=== PATIENT | male | born 1980 | race Caucasian/White ===

== ENCOUNTER 2019-05-26 11:01 | Outpatient (CLI) | payer OTHER, SELFPAY ==
--- NOTE | ~2019-05-26 | XR_ITS ---
EXAMINATION: XR hip RT 2V w AP pelvis EXAM DATE: 05/26/2019 11:21 INDICATION: Low back pain, right leg pain. TECHNIQUE: Right hip frontal, crosstable lateral and 'frog-leg' projections for interpretation. Front al projection pelvis. There is no prior study for comparison. FINDINGS: Smooth right hip femoral head contour, no radiographic evidence of avascular necrosis. The re is mild symmetric bilateral hip primary osteoarthritis. There are no acute fractures or dislocatio ns identified. There is no subcutaneous gas. The soft tissue is unremarkable. There are no radiop aque foreign bodies. IMPRESSION: Mild symmetric bilateral hip osteoarthritis. Reviewed, dictated and finalized at location B. STANT TEACHING PROFESSOR
--- NOTE | ~2019-05-26 | XR_ITS ---
EXAMINATION: XR lumbar spine 2-3V EXAM DATE: 05/26/2019 11:21 INDICATION: No known recent injury provided at this time. Pain of the low back. Right hip pain. TECHNIQUE: Lumber spine frontal, lateral, lateral L5-S1 projections for interpretation. There is no prior study for comparison. FINDINGS: Mild diffuse lumbar disc disease. Possible unilateral spondylolysis at L2. There is mild u pper lumbar, mild to moderate lower lumbar facet arthropathy. Sacrum, sacroiliac joints, sacral arcua te lines are intact. Paraspinal soft tissue is unremarkable. IMPRESSION: 1. Mild lumbar disc disease. 2. Mild to moderate lower lumbar facet arthropathy. 3. Possible unilateral L2 spondylolysis without spondylolisthesis. Reviewed, dictated and finalized at location B. ALT TAR AND GRAVEL ROOFER
== END 2019-05-26 11:02 | disposition home or self-care (01) ==
LOC: ANHIMG 11:03
PROVIDERS: PCP Family Medicine; Visit Provider Physician Assistant
DX: M54.5 Low back pain (principal); M25.551 Pain in right hip; M16.0 Bilateral primary osteoarthritis of hip; M51.9 Unspecified thoracic, thoracolumbar and lumbosacral intervertebral disc disorder
CPT/HCPCS: 72100; 73502; 73521

== ENCOUNTER 2019-06-01 09:04 | Outpatient (CLI) | payer OTHER, SELFPAY ==
--- NOTE | ~2019-06-01 | US_ITS ---
EXAMINATION: US soft tissue groin RT DATE: 06/01/2019 09:36 INDICATION: Right groin pain. TECHNIQUE: Multiple grayscale and Doppler ultrasound images of the right inguinal region were obtaine dAdi COMPARISON: None FINDINGS: There is no abnormal mass or lymphadenopathy. No hernia. IMPRESSION: 1. No abnormality in the patient's area of concern in right inguinal region. Reviewed, dictated and finalized at location A. ETERIZATION LABORATORY TECHNICIAN
== END 2019-06-01 09:05 | disposition home or self-care (01) ==
PROVIDERS: PCP Family Medicine; Visit Provider Physician Assistant
DX: M25.551 Pain in right hip (principal); R10.31 Right lower quadrant pain
CPT/HCPCS: 76882

== ENCOUNTER 2021-03-15 15:19 | Outpatient (CLI) | payer OTHER, SELFPAY ==
--- NOTE | ~2021-03-15 | US_ITS ---
EXAMINATION: US soft tissue LE RT DATE: 03/15/2021 15:48 INDICATION: Anesthesia of right thigh. TECHNIQUE: Multiple grayscale and Doppler ultrasound images of the right thigh were obtained. COMPARISON: None FINDINGS: There is no abnormal mass in the patient's area of concern in right thigh. IMPRESSION: 1. No abnormality in the patient's area of concern in right thigh. Reviewed, dictated and finalized at location A. B OFFICE COORDINATOR
== END 2021-03-15 15:20 | disposition home or self-care (01) ==
LOC: ANHIMG 15:23
PROVIDERS: PCP Family Medicine; Visit Provider Physician Assistant
DX: R20.0 Anesthesia of skin (principal); R20.2 Paresthesia of skin; R22.41 Localized swelling, mass and lump, right lower limb
CPT/HCPCS: 76882

== ENCOUNTER 2021-09-06 09:40 | Outpatient (CLI) | payer OTHER, SELFPAY ==
--- NOTE | 2021-09-06 11:15 | NEURO_ITS ---
Impression: # Complains of numbness of left hand. # Mild left Carpal Tunnel Syndrome. # Left ulnar neuropathy across the elbow. # Normal needle/EMG exam. Nerve Conduction Studies Anti Sensory Summary Table Stim Site NR Peak (ms) P-T Amp (?V) Site1 Site2 Delta-P (ms) Dist (cm) Benjamin (m/s) Left Median Anti Sensory (2-3nd Digit) Wrist 3.3 31.0 Wrist 2-3nd Digit 3.3 14.0 42 Wrist 3.5 28.8 Wrist 2-3nd Digit 3.3 14.0 42 Left Radial Anti Sensory (Base 1st Digit) Wrist 2.2 7.4 Wrist Base 1st Digit 2.2 0.0 Left Ulnar Anti Sensory (5th Digit) Wrist 3.1 36.9 Wrist 5th Digit 3.1 14.0 45 Motor Summary Table Stim Site NR Onset (ms) O-P Amp (mV) Site1 Site2 Delta-0 (ms) Dist (cm) Benjamin (m/s) Left Median Motor (Abd Poll Brev) Wrist 4.3 3.0 Elbow Wrist 6.1 33.0 54 Elbow 10.4 3.7 Left Ulnar Motor (Abd Dig Minimi) Wrist 2.8 6.6 A Elbow Wrist 7.7 32.0 42 A Elbow 10.5 3.2 B Elbow Wrist 5.5 29.0 53 B Elbow 8.3 5.2 F Wave Studies NR F-Lat (ms) L-R F-Lat (ms) Left Median (Mrkrs) (Abd Poll Brev) 32.46 Left Ulnar (Mrkrs) (Abd Dig Min) 35.01 EMG Side Muscle Nerve Root Ins Act Fibs Amp Dur Recrt Comment Left 1stDorInt Ulnar C8-T1 Nml Nml Nml Nml Nml Left Ext Indicis Radial (Post Int) C7-8 Nml Nml Nml Nml Nml Left Ext Digitorum Radial (Post Int) C7-8 Nml Nml Nml Nml Nml Left BrachioRad Radial C5-6 Nml Nml Nml Nml Nml Left PronatorTeres Median C6-7 Nml Nml Nml Nml Nml Left Abd Poll Brev Median C8-T1 Nml Nml Nml Nml Nml MTDD
== END 2021-09-06 09:41 | disposition home or self-care (01) ==
PROVIDERS: PCP Family Medicine; Visit Provider Nurse Practitioner Family
DX: R20.0 Anesthesia of skin (principal); R20.2 Paresthesia of skin; G56.02 Carpal tunnel syndrome, left upper limb; G56.22 Lesion of ulnar nerve, left upper limb
CPT/HCPCS: 95886; 95909

== ENCOUNTER 2023-07-18 09:34 | Emergency (ER) | payer OTHER, SELFPAY ==
[2023-07-18 10:04] VITALS: BP 99/66; PULSE 71; RESP 18; TEMP 36.5; O2SAT 100
--- NOTE | 2023-07-18 10:55 | ED.GENADULT ---
HPI - General Adult General Chief complaint: Abdominal Pain Stated complaint: constipation Time Seen by Provider: 07/18/23 10:35 Source: patient, RN notes reviewed and old records reviewed Mode of arrival: ambulatory Limitations: no limitations History of Present Illness HPI narrative: 43-year-old male to [facility] for complaint generalized abdominal discomfort and constipation. Patient endorses last known bowel movement was 6 days ago. Patient endorses ability to pass gas. Patient denies any urinary changes, nausea, vomiting, fever. Patient endorses history of bowel resection as a child following an accident. Patient in no acute distress upon arrival. Respirations even and nonlabored. Patient able to tolerate fluids by mouth. Related Data Home Medications Medication Instructions Recorded Confirmed clonazepam 0.5 mg tablet 0.5 mg PO TID 05/26/19 12/17/22 hydroxyzine HCl 25 mg tablet 25 mg PO BID PRN 05/26/19 12/17/22 metoprolol succinate 50 mg 50 mg PO BID 05/26/19 12/17/22 tablet,extended release 24 hr rosuvastatin 10 mg tablet (Crestor) 10 mg PO DAILY 06/01/20 12/17/22 buspirone 10 mg tablet 10 mg PO TID 07/25/22 12/17/22 sildenafil 25 mg tablet (Viagra) 25 mg PO DAILY sexual activity 07/18/23 tirzepatide 10 mg/0.5 mL mg subcut 07/18/23 subcutaneous pen injector (Mounjaro) Allergies Allergy/AdvReac Type Severity Reaction Status Date / Time sertraline Allergy Unknown ED Verified 07/18/23 11:28 zolpidem Allergy Unknown nightmares Verified 07/18/23 11:28 Review of Systems Review of Systems: All systems reviewed & are unremarkable except as noted in HPI and below Constitutional: Constitutional: Reports as per HPI, Denies body ache(s), Denies chills, Denies fever(s) and Denies poor appetite Eyes: Eyes: Reports no additional eye complaints ENT: Reports system reviewed and no additional complaints, except as documented Cardiovascular: Cardiovascular: Reports no additional cardiovascular complaints, Denies chest pain and Denies dyspnea Respiratory: Respiratory: Reports no additional respiratory complaints, Denies cough and Denies dyspnea Gastrointestinal: Gastrointestinal: Reports as per HPI, Reports abdominal pain, Reports constipation, Denies nausea and Denies vomiting Musculoskeletal: Musculoskeletal: Reports no additional musculoskeletal complaints Neurologic: Reports system reviewed and no additional complaints, except as documented Psychiatric: Psychiatric: Reports no additional psychiatric complaints [facility] Past Medical History Medical History (Updated 07/18/23 @ 15:13 by Semaj Chavez MD) Generalized anxiety disorder Low testosterone MATTHEW (obstructive sleep apnea) Pure hypercholesterolemia Right leg DVT Surgical History Surgical History (Updated 07/18/23 @ 15:13 by Semaj Chavez MD) H/O resection of small bowel Partial 2/2 trauma at age 12 yr. History of cholecystectomy History of Roland fundoplication Social History Social History Social History: Smoking status: Never smoker Second hand tobacco smoke exposure: No Alcohol intake: never Substance use: never Substance use type: does not use Lack of Transportation: No Lack of Food: Never True Current Housing: I Have Housing Concerned About Future Housing: No Difficulty Paying Gas/Electric Bills: No Difficulty Paying for Meds: No Currently Unemployed: No Education: Decline to Answer Difficulty w/ Childcare or Family Care: No Living arrangements: with family Occupation/Education: occupation Gender identity (if verbalized by the patient): Male Sexual Orientation (if Verbalized by the Patient): Straight or Heterosexual Comments At the time of my signature, I reviewed and agree with the nursing past medical, surgical, social, and family history. There is no relevant family history pertinent to the patient complaint
[2023-07-18 11:13] VITALS: BP 110/69
== END 2023-07-18 11:00 | disposition short-term general hospital (02) ==
PROVIDERS: Emergency Provider Nurse Practitioner Family; PCP Family Medicine
DX: R10.30 Lower abdominal pain, unspecified (principal); R10.31 Right lower quadrant pain; K59.00 Constipation, unspecified; E78.00 Pure hypercholesterolemia, unspecified; F41.9 Anxiety disorder, unspecified; Z86.718 Personal history of other venous thrombosis and embolism
CPT/HCPCS: 99212; G0463

== ENCOUNTER 2023-07-18 11:27 | Emergency (ER) | payer OTHER, SELFPAY ==
--- NOTE | ~2023-07-18 | CT_ITS ---
. EXAMINATION: CT abdomen pelvis w con DATE: 07/18/2023 15:49 INDICATION: Constipation. Suprapubic pain. Nausea. TECHNIQUE: Computed tomography (CT) of the abdomen and pelvis was performed with 100 CC Omnipaque 350 intravenous contrast. Automated exposure control and iterative reconstruction technique were employe d. Exam dose: 1259.00 mGy-cm total exam DLP. COMPARISON: None. FINDINGS: The lung bases are clear of infiltrate or consolidation. Normal heart size. No pericardial or pleural effusion. Very small sliding hiatal hernia. Status post cholecystectomy. The liver, spleen, pancreas, and adrenal glands and kidneys are unremarkable. No bile duct or pancrea tic duct dilatation. No urinary tract calculus or hydroureteronephrosis. Normal caliber of the abdominal aorta. No intraperitoneal or retroperitoneal or pelvic mass lesion or adenopathy or ascites. The urinary bladder and prostate gland are unremarkable. The appendix is not detected. There is no inflammatory change in the right lower quadrant or elsewher e. No bowel obstruction is detected. There are fluid containing nondilated small bowel segments. No i ntraperitoneal free air. Mild to moderate bilateral hip osteoarthritis. No suspicious osteolytic or osteoblastic lesions are n oted Borderline primary lumbar spinal stenosis.. IMPRESSION: Very small sliding hernia Status post cholecystectomy Borderline primary lumbar spinal stenosis Bilateral hip osteoarthritis Reviewed, dictated and finalized at Location A. Reviewed, dictated and finalized at location L.
[2023-07-18 11:56] VITALS: BP 106/62; PULSE 77; RESP 18; TEMP 36.5; O2SAT 100
--- NOTE | 2023-07-18 13:40 | ED.ABDPAIN ---
HPI - Abdominal Pain General Chief Complaint: Abdominal Pain <JOE Luo Last Filed: 07/18/23 13:46> Stated Complaint: abdominal pain <JEO Luo Last Filed: 07/18/23 13:46> Time Seen by Provider: 07/18/23 13:40 <Rabia Mc PA-C - Last Filed: 07/18/23 13:46> Focused HPI: Patient is a 43 y/o male who presents the ED with report of lower abdominal pain. Patient reports he woke up Saturday morning with pain in his suprapubic region, radiates throughout his lower abdomen. Feels like a pressure. Pain has been worsening since then. Reports some improvement with Gas-x. Reports constipation, last BM on Saturday. Reports intermittent nausea, denies current nausea. Denies vomiting. Denies fevers. Denies dysuria or hematuria, flank pain. Patient denies hx of similar pain. Patient is currently on Mounjaro for weight loss. GENERAL: Well-appearing, obese with BMI of 34.1, and in no acute distress. HEAD: Normocephalic, atraumatic. CHEST: Clear to auscultation. ?No respiratory distress. HEART: Regular rate and rhythm.? ABD: Minimal tenderness throughout suprapubic region. No rebound. Normoactive BS. NEURO: ?Alert and oriented x3. Patient screened in triage and initial orders placed.? ?Additional care and disposition to be based upon?diagnostic testing and treatment. <Rabia Mc PA-C - Last Filed: 07/18/23 13:46> Source: patient <JOE Luo Last Filed: 07/18/23 13:46> Mode of arrival: ambulatory <JOE Luo Last Filed: 07/18/23 13:46> Limitations: no limitations <JOE Luo Last Filed: 07/18/23 13:46> History of Present Illness HPI narrative: Patient is a 43-year-old male who presents ER with lower abdominal pain. Ongoing over last week. Has not had a good bowel movement in that time. He has passed some hard small pieces of stool. He has passed gas. No fevers or chills or sweats. He was summoned RO. He was at the pharmacy purchasing MiraLax and enema kit after discussion decided that he should go to urgent care who then referred him here. No history of bowel obstruction but he has had partial small-bowel resection. He has also had a Roland fundoplication and cholecystectomy. <Semaj Chavez MD - Last Filed: 07/18/23 18:24> Related Data Home Medications: Home Medications Medication Instructions Recorded Confirmed clonazepam 0.5 mg tablet 0.5 mg PO TID 05/26/19 12/17/22 hydroxyzine HCl 25 mg tablet 25 mg PO BID PRN 05/26/19 12/17/22 metoprolol succinate 50 mg 50 mg PO BID 05/26/19 12/17/22 tablet,extended release 24 hr rosuvastatin 10 mg tablet (Crestor) 10 mg PO DAILY 06/01/20 12/17/22 buspirone 10 mg tablet 10 mg PO TID 07/25/22 12/17/22 sildenafil 25 mg tablet (Viagra) 25 mg PO DAILY sexual activity 07/18/23 tirzepatide 10 mg/0.5 mL mg subcut 07/18/23 subcutaneous pen injector (Mounjaro) <Rabia Mc PA-C - Last Filed: 07/18/23 13:46> Allergies/Adverse Reactions: Allergies Allergy/AdvReac Type Severity Reaction Status Date / Time sertraline Allergy Unknown ED Verified 07/18/23 11:28 zolpidem Allergy Unknown nightmares Verified 07/18/23 11:28 <Rabia Mc PA-C - Last Filed: 07/18/23 13:46> Review of Systems Review of Systems: All systems reviewed & are unremarkable except as noted in HPI and below <Semaj Chavez MD - Last Filed: 07/18/23 18:24> Constitutional: Constitutional: Reports no additional constitutional complaints <Semaj Chavez MD - Last Filed: 07/18/23 18:24> ENT: Reports system reviewed and no additional complaints, except as documented <Semaj Chavez MD - Last Filed: 07/18/23 18:24> Cardiovascular: Cardiovascular: Reports no additional cardiovascular complaints <Semaj Chavez MD - Last Filed: 07/18/23 18:24> Respiratory: Respiratory: Reports no additional respiratory complaints <Semaj Stark
[2023-07-18 14:13] LABS: Basophils Absolute Auto 0.1 K/mm3 (0.0-0.1); Eosinophils Absolute Auto 0.1 K/mm3 (0-0.3); Eosinophils Percent Auto 1.3 % (0-4.4); Hematocrit 49.8 % (42.0-52.0); Hemoglobin 15.8 g/dL (14.0-18.0); Immature Granulocyte Absolute 0.03 K/mm3 (0.00-0.031); Immature Granulocyte Percent A 0.5 % (0-0.5); Lymphocytes Absolute Auto 1.96 K/mm3 (0.9-3.2); Lymphocytes Percent Auto 32.1 % (18.3-44.2); Mean Corpuscular HGB Conc 31.7 g/dl (32-36); Mean Corpuscular Hemoglobin 27.3 pg (26-34); Mean Corpuscular Volume 86.2 fl (80-100); Mean Platelet Volume 9.3 fl (7.4-10.4); Monocytes Absolute Auto 0.5 K/mm3 (0.1-0.6); Monocytes Percent Auto 7.7 % (2.6-8.5); Neutrophils Absolute Auto 3.5 K/mm3 (1.3-6.7); Neutrophils Percent Auto 57.4 % (45.5-73.1); Platelet Count Result 261 k/mm3 (150-375); Red Blood Count 5.78 M/mm3 (4.6-6.20); Red Cell Distribution Width 13.5 % (11.5-14.5); White Blood Count 6.1 K/mm3 (4.5-10.0)
[2023-07-18 14:16] LABS: Appearance Urine Clear (Clear); Bilirubin Urine Negative (Negative); Blood Urine Negative (Negative); Color Urine Yellow (Yellow); Glucose Urine UA Negative (Negative); Ketones Urine Negative (Negative); Leukocyte Esterase Ur Negative LEU/UL (Negative); Nitrate Urine Negative (Negative); Protein Urine Negative (Negative); Specific Grav Ur 1.012 (1.001-1.035); Urobilinogen Urine 0.2 mg/dL (<2.0)
[2023-07-18 14:22] LABS: Add Urine Microscopic? NO
[2023-07-18 14:43] VITALS: BP 117/71; PULSE 72; RESP 16; O2SAT 100
[2023-07-18 15:21] LABS: Alanine Aminotransferase 37 U/L (6-50); Albumin Level 4.7 g/dL (3.5-5.1); Alkaline Phosphatase 76 U/L (38-126); Anion Gap 3 mmol/L (8-16); Aspartate Amino Transferase 28 U/L (17-59); Bilirubin,Total 0.9 mg/dL (0.2-1.3); Blood Urea Nitrogen 12 mg/dL (9-20); Calcium 9.7 mg/dL (8.4-10.2); Carbon Dioxide 31 mmol/L (22-30); Chloride 104 mmol/L (98-107); Estimated CRCL calculation 138 ml/min; Estimated Glomerular Filt Rate > 60; Glucose 91 mg/dL (65-110); Lipase 95 U/L (23-300); Potassium 4.1 mmol/L (3.4-5.0); Sodium 138 mmol/L (137-145)
[2023-07-18 16:44] VITALS: BP 99/68; PULSE 70; RESP 16; O2SAT 100
== END 2023-07-18 16:55 | disposition home or self-care (01) ==
PROVIDERS: Physician Assistant; Emergency Provider Emergency Medicine; PCP Family Medicine
DX: R10.30 Lower abdominal pain, unspecified (principal); E78.00 Pure hypercholesterolemia, unspecified; G47.33 Obstructive sleep apnea (adult) (pediatric); F41.1 Generalized anxiety disorder; Z86.718 Personal history of other venous thrombosis and embolism; Z90.49 Acquired absence of other specified parts of digestive tract; Z79.85 Long-term (current) use of injectable non-insulin antidiabetic drugs; K46.9 Unspecified abdominal hernia without obstruction or gangrene; M16.0 Bilateral primary osteoarthritis of hip
CPT/HCPCS: 36415; 74177; 80053; 83690; 85025; 99284; Q9967

== ENCOUNTER 2023-11-28 08:27 | Outpatient (CLI) | payer OTHER, SELFPAY ==
--- NOTE | 2023-11-28 11:45 | NEURO_ITS ---
Clinical note: The patient is 43-year-old with history of paresthesias in left 4th and 5th digits. There is history of surgery for ulnar neuropathy at elbow in the past. no history of diabetes mellitus. On brief examination it was noted the patient has mild atrophy of the left 1st dorsal interossei compared to the right side. However no significant deformity or weakness was noted. Please refer to the enclosed data. Summary of findings 1. Left median motor distal latency was moderately prolonged however amplitude and conduction velocity were within normal limits. 2. Left ulnar motor distal latency is mildly prolonged but amplitude was normal. Conduction velocity from below elbow to wrist was normal however across the elbow shows moderate slowing. 3. Left median palmar and digital sensory distal latencies a mild to moderate prolonged and amplitudes were moderately decreased. Left ulnar palmar sensory distal latency was normal however amplitudes moderately decreased. Left ulnar digital sensory distal latency was mildly prolonged but amplitude was sensory within normal limits. Left radial sensory distal latency amplitude and conduction velocity within normal limits. 4. EMG examination was performed using a monopolar needle electrode which shows evidence of mild decreased motor unit recruitment in the left flexor digitorum profundus. Remainder of the muscles examined did not show any significant changes. Impression: EMG and nerve study of left upper limb shows evidence of 1. 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 No denervation changes but mild decreased recruitment was noted in the left ulnar innervated muscles in the forearm. 2. Mild to moderate carpal tunnel syndrome. No denervation changes were seen in the abductor pollicis brevis. The greater involvement of the median motor branch compared to the sensory branch. Remainder of the study is considered within acceptable normal limits. Suzanne Arellano MD, FAAN, FAANEM Neurology/ Electrodiagnostic Medicine Nerve Conduction Studies Motor Nerve Results Latency Amplitude Segment Distance CV Comment Site (ms) (mV) (cm) (m/s) Left Median (APB) Motor Wrist 5.6 6.0 Elbow 10.6 5.8 Elbow-Wrist 255 51 Left Ulnar (ADM) Motor Wrist 3.6 9.3 Bel Elbow 8.5 8.1 Bel Elbow-Wrist 240 49 Abv Elbow 10.7 8.0 Abv Elbow-Bel Elbow 80 36 Sensory Nerve Results Latency (Peak) Amplitude (P-P) Segment Distance CV Comment Site (ms) (?V) (cm) (m/s) Left Median Sensory Wrist-Dig III 4.5 32 Wrist-Dig III 165 37 Left Median-Ulnar Palmar Sensory Median Palm-Wrist 2.5 40 Palm-Wrist 80 32 Ulnar Palm-Wrist 2.2 5 Palm-Wrist 80 36 Left Radial Sensory Forearm-Wrist 2.1 39 Forearm-Wrist 100 48 Left Ulnar Sensory Wrist-Dig V 3.7 15 Wrist-Dig V 140 38 Electromyography Side Muscle Nerve Ins Act Fibs Psw Amp Dur Recrt Comment Left Deltoid Axillary Nml Nml Nml Nml Nml Nml Left Triceps Radial Nml Nml Nml Nml Nml Nml Left ExtCarUln Radial (Post Int) Nml Nml Nml Nml Nml Nml Left FlexPolLong Median (Ant Int) Nml Nml Nml Nml Nml Nml Left 1stDorInt Ulnar Nml Nml Nml Nml Nml Nml Left Abd Poll Brev Median Nml Nml Nml Nml Nml Nml Left FlexDigProf Ulnar Nml Nml 1+ Nml >12ms +1 Left FlexCarRad Median Nml Nml Nml Nml Nml Nml MTDD
== END 2023-11-28 08:28 | disposition home or self-care (01) ==
LOC: ANHNEURO 08:27
PROVIDERS: PCP Family Medicine; Visit Provider Student in an Organized Health Care Education/Training Program
DX: G56.22 Lesion of ulnar nerve, left upper limb (principal); R94.131 Abnormal electromyogram [EMG]
CPT/HCPCS: 95886; 95909

== ENCOUNTER 2023-12-04 12:19 | Outpatient (CLI) | payer OTHER, SELFPAY ==
--- NOTE | ~2023-12-04 | US_ITS ---
EXAMINATION: US venous doppler LE RT DATE: 12/04/2023 13:04 INDICATION: Right lower limb pain. TECHNIQUE: Grayscale ultrasound images without and with compression and Doppler ultrasound images of the right lower extremity veins were obtained. COMPARISON: Ultrasound 05/15/2019 FINDINGS: The visualized portions of right common femoral vein, profunda (deep) femoral vein, femoral vein, pop liteal vein, peroneal veins, posterior tibial veins, and greater saphenous vein outflow are patent. T here is thrombus in right gastrocnemius vein. IMPRESSION: 1. Deep vein thrombosis involving right gastrocnemius vein, similar to 05/15/2019. Reviewed, dictated and finalized at location A. IMPRESSION: 1. Deep vein thrombosis involving right gastrocnemius vein, similar to 05/15/19 20.
== END 2023-12-04 12:20 | disposition home or self-care (01) ==
LOC: ANHIMG 12:20
PROVIDERS: PCP Family Medicine; Visit Provider Physician Assistant Medical
DX: I82.461 Acute embolism and thrombosis of right calf muscular vein (principal); M79.661 Pain in right lower leg
CPT/HCPCS: 93971

== ENCOUNTER 2025-03-11 16:49 | Outpatient (CLI) | payer OTHER, SELFPAY ==
--- OUTSIDE RECORDS SUMMARY | 2025-03-11 16:51 | XMS_ITS | Clinical Summary ---
Author Organization [email or web address] Address [address] [place] [address] Care Team Providers Care Finisher Hot Strip Name Role Phone Ramiro Muñiz MD Primary Care Provider [phone] Source Comments [email or web address],non-owned Affiliates and Associated Physician Practices is amultiple site organization consisting of ambulatory clinics and hospital sitesin [place], [place], [place] and [place]. This disclosure is being madepursuant to the Care Everywhere program and may not contain all information available regarding this patient. Last updated 18.[email or web address] Allergies No known active allergies Medications * Be aware that medications may not be up to date on this document. Alwaysverify current medications with the patient. lisinopril (PRINIVIL; ZESTRIL) 2.5 MG tablet Take 2.5 mg by mouth once daily Active busPIRone (BUSPAR) 10 MG tablet Take 1 (one) tablet by mouth 2 times daily Active amitriptyline (ELAVIL) 50 MG tablet Take 50 mg by mouth at bedtime Active hydrOXYzine hcl (ATARAX) 25 MG tablet Take 1 tablet by mouth 3 times daily as needed for Itching 90 tablet 9 Active rosuvastatin (Crestor) 10 MG tablet Take 1 (one) tablet by mouth once daily Active fluvoxaMINE (Luvox) 25 MG tablet Take 1 (one) tablet by mouth at bedtime Active tirzepatide (Mounjaro) 10 MG/0.5ML injection Inject 10 (ten) mg subcutaneously every 7 days Active eszopiclone (Lunesta) 1 MG tablet Take 1 (one) tablet by mouth nightly as needed for Insomnia Active Cholecalcifero l (vitamin D3) 1.25 MG (48032 UT) capsule Take 1 (one) capsule by mouth every 7 days Active Menatetrenone (Vitamin K2) 100 MCG TABS Active azelastine (Astelin) 0.1 % nasal spray [place] 1 (one) spray into each nostril 2 times daily 30 mL 3 3 Active fluticasone propionate (Flonase) 50 MCG/ACT nasal spray [place] 2 (two) sprays into each nostril once daily 16 g 3 3 Active amoxicillin-cl avulanate (Augmentin) 875-125 MG tablet Take 1 (one) tablet by mouth 2 times daily with morning and evening meal 20 tablet 3 Active Additional Information Patient not taking.Reported on 03/26/2023 omeprazole (PriLOSEC) 40 MG capsule Take 1 (one) capsule by mouth once daily 30 capsule 3 3 Active Additional Information Patient not taking.Reported on 03/26/2023 clonazePAM (KlonoPIN) 0.5 MG tablet Take 1 (one) tablet by mouth as directed 3 Active Menaquinone-7 (Vitamin K2) 100 MCG Take 100 mcg by mouth once daily Active metoprolol succinate XL 24hr (Toprol XL) 25 MG tablet Take 1 (one) tablet by mouth once daily 3 Active mometasone (Elocon) 0.1 % cream Apply 1 Dose to affected area as needed 3 Active Multiple Vitamin (Daily Vites) TABS Take 1 (one) tablet by mouth once daily Active sildenafil (Viagra) 25 MG tablet Take 0.5 (one-half) tablet by mouth once daily as needed 2 Active rivaroxaban (Xarelto) 10 MG tablet Take 1 (one) tablet by mouth once daily 3 Active Active Problems No known active problems Immunizations Immunization Administration Dates Next Due DTP, HISTORIC VACCINE 10/17/1983, 983,1982,1981 FLU VACCINE TRI IIV3 SPLIT I M (FLUVIRIN) 02/04/2021,02/24/2015 INFLUENZA VACCINE, CELL CULT URE, QUADR. (FLUCELVAX QUADRIVALENT; 6MO+) (CCIIV4) 01/24/2022 INFLUENZA VACCINE, QUADR. (F LUZONE; FLULAVAL; FLUARIX; AFLURIA QUADRIVALENT; 6MO+), 0.5 ML (IIV4) 02/02/2023,01/16/2020 MMR VACCINE 07/18/1983 POLIO OPV 10/17/1983,1982,1982 TDAP (7yrs+) 11/13/2016 Social History Tobacco Use Types Packs/Day Years Used Date Smoking Tobacco: Never Smokeless Tobacco: Never Tobacco Cessation:Counseling Given: Not Answered Alcohol Use Standard Drinks/Week Comments No 0 (1 standard drink = 0.6 oz pur e alcohol) Sex and Gender Information Value Date Recorded Sex Assigned at Not on file Legal Sex Male 7:18 AM PUBLISHING EDITOR Gender Identity Not on file Sexual Orientation Not on file Last Filed Vital Signs Vital Sign Reading Time Taken Comments Blood Pressure 98/67 03/26/2023 12:59 PM PUBLISHING EDITOR Pulse 74 03/26/2023 12:59 PM PUBLISHING EDITOR Temperature 36.7 C (98 F) 09/17/2018 9:37 PM CDT Respiratory Rate 18 09/18/2018 12:10 AM CDT Oxygen Saturation 97% 02/21/2023 2:22 PM CDT Inhaled Oxygen Concentration - - Weight 132.9 kg (293 lb) 03/26/2023 12:59 PM PUBLISHING EDITOR Height 195.6 cm (6' 5) 03/26/2023 12:59 PM PUBLISHING EDITOR Body Mass Index 34.74 03/26/2023 12:59 PM PUBLISHING EDITOR Plan of Treatment Health Maintenance Due Date Last Done Comments HIV SCREENING 1997 HEPATITIS C SCREENING 02/06/2000 HEPATITIS B VACCINE (1 of 3 - 19+ 3-dose series) 2001 HPV VACCINE (1 - 3-dose SCDM series) 2009 SCREENING FOR DIABETES 03/26/2023 DEPRESSION SCREENING 04/29/2024 COVID-19 VACCINE ( season) 2024 01/24/2022, 04/14/2021, 07/23/2020, Additional history exists INFLUENZA VACCINE (#1) 2024 3, 01/24/2022, 02/04/2021, Additional history exists DTAP/TDAP/TD VACCINES (6 - Td or Tdap) 11/13/2026 11/13/2016, 10/17/1983, 1982, Additional history exists ZOSTER VACCINE (1 of 2) 02/11/2032 HIB VACCINE Aged Out No longer eligi ble based on patient's age to complete this topic MENINGOCOCCAL (Group B) VACCINE SHARED DECISION-MAKING Aged Out No longer eligible based on patient's age to complete this topic MENINGOCOCCAL GROUPS A/C/Y/W VACCINE Aged Out No longer eligible based on patient's age to complete this topic PNEUMOCOCCAL VACCINE Aged Out No long er eligible based on patient's age to complete this topic Insurance [facility] Care Teams Finisher Hot Strip Relationship Specialty Start Date End Date Ramiro Muñiz MD [address] [place] [address] PCP - General Family Medicine 09/17/18
--- OUTSIDE RECORDS SUMMARY | 2025-03-11 16:51 | XMS_ITS | Clinical Summary ---
Author Organization [facility] Address [address] [place] [address] Care Team Providers Care Hub Associate Name Role Phone Ramiro Muñiz MD Primary Care Provider Allergies No known active allergies Medications No known medications Social History Tobacco Use Types Packs/Day Years Used Date Smoking Tobacco: Never Passive Smoke Exposure: Never Smokeless Tobacco: Never Tobacco Cessation:Counseling Given: Not Answered Alcohol Use Standard Drinks/Week Comments Not Currently 0 (1 standard drink = 0.6 oz pur e alcohol) Sex and Gender Information Value Date Recorded Sex Assigned at Not on file Legal Sex Male 4:12 PM CDT Gender Identity Not on file Sexual Orientation Not on file Last Filed Vital Signs Vital Sign Reading Time Taken Comments Blood Pressure 125/78 03/18/2024 10:43 PM MEDICAL SERVICES ASSISTANT Pulse 70 03/18/2024 10:43 PM MEDICAL SERVICES ASSISTANT Temperature 36.1 C (97 F) 03/18/2024 10:43 PM MEDICAL SERVICES ASSISTANT Respiratory Rate 18 03/18/2024 10:43 PM MEDICAL SERVICES ASSISTANT Oxygen Saturation 99% 03/18/2024 10:43 PM MEDICAL SERVICES ASSISTANT Inhaled Oxygen Concentration - - Weight 136.1 kg (300 lb) 03/18/2024 10:43 PM MEDICAL SERVICES ASSISTANT Height 193 cm (6' 4) 03/18/2024 10:43 PM MEDICAL SERVICES ASSISTANT Body Mass Index 36.52 03/18/2024 10:43 PM MEDICAL SERVICES ASSISTANT Plan of Treatment Health Maintenance Due Date Last Done Comments Annual Physical 1985 Hepatitis C 02/11/2000 Hepatitis B Vaccines (1 of 3 - 19+ 3-dose series) 2001 HPV Vaccines (1 - 3-dose SCDM series) 2009 PHQ-2 (Physician [place]) 04/29/2024 COVID-19 Vaccine (3 - 2025-26 season) 2024 07/23/2020, 06/12/2020 Influenza Adult (#1) 2025 02/02/2023, 01/24/2022, 02/04/2021, Additional history exists DTaP, Tdap and Td Vaccines (6 - Td or Tdap) 11/13/2026 11/13/2016, 10/17/1983, 10/17/1983, Additional history exists Hepatitis A Vaccines Aged Out No long er eligible based on patient's age to complete this topic Meningococcal B Vaccine Aged Out No l onger eligible based on patient's age to complete this topic Meningococcal Vaccine Aged Out No jose manish eligible based on patient's age to complete this topic Pneumococcal Vaccine: Pediatrics (0 to 5 Years) and At-Risk Patients (6 to 49 Years) Aged Out No longer eligible based on patient's age to complete this topic RSV Immunizations Under 20 Months Aged Out No longer eligible based on patient's age to complete this topic Insurance [facility] Care Teams Hub Associate Relationship Specialty Start Date End Date Ramiro Muñiz MD [address] [place] [address] PCP - General 06/21/15
--- OUTSIDE RECORDS SUMMARY | 2025-03-11 16:51 | XMS_ITS | Encounter Summary ---
Author Organization [facility] Healthcare Address [address] [place] [address] Care Team Providers Care Gasoline Power Shovel Operator Name Role Phone Ramiro Muñiz MD Primary Care Provider Linda Pennington MD Unavailable [phone] Encounter Details Date Type Department Care Team (Late st Contact Info) Description 03/09/2025 Telephone [facility] Medical Group Cardiology [address] [facility] [address] [address] Jordan Santoyo MD [facility] [address] [address] Social History Tobacco Use Types Packs/Day Years Used Date Smoking Tobacco: Never Passive Smoke Exposure: Never Smokeless Tobacco: Never Alcohol Use Standard Drinks/Week Comments Not Currently 0 (1 standard drink = 0.6 oz pure alcohol) Has not consumed any alcohol in greater than 5 years AUDIT-C Answer Date Recorded Q1: How often do you have a drink containing alc ohol? Never 08/19/2024 Average Number of Drinks Not on file 025 Frequency of Binge Drinking Not on file 07/29 Education Answer Date Recorded What is the highest level of school you have completed or the highest degree you have received? 12th grade 04/18/2020 Sex and Gender Information Value Date Recorded Sex Assigned at Not on file Legal Sex Male 1:56 AM PHYSIOLOGIST Gender Identity Not on file Sexual Orientation Not on file documented as of this encounter Miscellaneous Notes * Telephone Encounter - Tiffanie Adkins MA - 03/11/2025 11:54 AM PHYSIOLOGIST I will check on the addendum Saturday. IOLOGIST * Telephone Encounter - Tiffanie Adkins MA - 03/09/2025 11:04 AM PHYSIOLOGIST Message sent to Dr. Laura to do Addendum on pt. CTA 11/2024.She stated that she would do this. IOLOGIST * Telephone Encounter - Tiffanie Adkins MA - 03/09/2025 10:00 AM PHYSIOLOGIST Do you want to do a Peer to Peer? CTA of chest IOLOGIST * Telephone Encounter - Annabella Washington - 03/09/2025 7:30 AM CST Tiffanie, Please let Dr. Santoyo know that cpt code 43165 was denied by [facility] on 03-03-25 and he has 21 days fromthe denial date to perform a Peer to Peer. Or see if he wants to order a different test. Thank you IOLOGIST documented in this encounter Plan of Treatment Not on file documented as of this encounter Visit Diagnoses Not on filedocumented in this encounter Care Teams Gasoline Power Shovel Operator Relationship Specialty Start Date End Date Ramiro Muñiz MD [address] [place] [id number] PCP - General Family Medicine 09/30/18 Linda Pennington MD [address] [facility] [address] [address] Glass Cut Off Tender Cardiology 04/10/19 documented as of this encounter
--- OUTSIDE RECORDS SUMMARY | 2025-03-11 16:51 | XMS_ITS | Clinical Summary ---
Author Organization [facility] Address [address] [place] [address] Phone Care Team Providers Care Bellhop Name Role Phone Ramiro Muñiz MD Primary Care Provider [phone] Allergies No known active allergies Medications rivaroxaban (Xarelto) 10 mg Tablet Take 10 mg by mouth daily. Active busPIRone (BUSPAR) 10 mg tablet Take 10 mg by mouth 2 times daily. Active clonazePAM (KlonoPIN) 0.5 mg Tablet Take 0.5 mg by mouth 3 times daily. 9 Active hydrOXYzine HCl (ATARAX) 25 mg tablet Take 25 mg by mouth Continuous as needed. 9 Active metoprolol succinate (TOPROL XL) 50 mg Extended Release 24 hour tablet Take 50 mg by mouth daily. 9 Active semaglutide (Ozempic) 0.25 mg or 0.5 mg(2 mg/1.5 mL) Pen Injector Inject by subcutaneous injection. 0.5MG ONCE A WEEK Active FLUoxetine (PROzac) 20 mg capsule Take 20 mg by mouth daily. Active multivitamin (DAILY-ANDI) tablet Take 1 Tablet by mouth daily. Active ergocalciferol, vitamin D2, (VITAMIN D ORAL) Take by mouth. 2,000 PER DAY Active fluvoxaMINE (LUVOX) 25 mg tablet Take 25 mg by mouth daily at bedtime. Active rosuvastatin (CRESTOR) 10 mg tablet Take 10 mg by mouth daily at bedtime. Active Active Problems Problem Noted Date Diagnosed Date Morbid obesity with body mass index of 40.0-49.9 11/18/2018 Immunizations Immunization Administration Dates Next Due (ADACEL/BOOSTRIX)(10 YR UP) TDAP VACCINE, 0.5ML, IM 11/13/2016 (M-M-R II/PRIORIX)(12 MO UP) MEASLES, MUMPS AND RUBELLA VIRUS VACCINE, 0.5 ML IM/SUBCUT 07/18/1983 (PFIZER)(12 YR UP) COVID-19 VACCINE - EMERGENCY USE AUTHORIZATION, MRNA, [id number](PF) 30 MCG/0.3 ML IM SUSP 07/23/2020,06/12/2020 DTaP Vaccine < 7 YO IM VFC 10/17/1983,,1982,1981 Influenza Vaccine Tri Split 4+ Im 02/24/2015 Poliovirus Vaccine Live Oral 10/17/1983,07/12/18 83,1982 Family History Medical History Relation Name Comments Hypertension Father Hypertension Mother Relation Name Status Comments Father Mother Social History Tobacco Use Types Packs/Day Years Used Date Smoking Tobacco: Never Smokeless Tobacco: Never Alcohol Use Standard Drinks/Week Comments Never 0 (1 standard drink = 0.6 oz pur e alcohol) Sex and Gender Information Value Date Recorded Sex Assigned at Not on file Legal Sex Male 4:55 PM CDT Gender Identity Not on file Sexual Orientation Not on file Last Filed Vital Signs Vital Sign Reading Time Taken Comments Blood Pressure 116/77 12/14/2020 9:26 AM CDT Pulse 75 12/14/2020 9:26 AM CDT Temperature 36.1 C (96.9 F) 01/06/2019 1:19 PM CDT Respiratory Rate 18 01/06/2019 1:36 PM CDT Oxygen Saturation 96% 12/14/2020 9:26 AM CDT Inhaled Oxygen Concentration - - Weight 169.6 kg (374 lb) 12/14/2020 9:26 AM CDT Height 194.3 cm (6' 4.5) 12/14/2020 9:26 AM CDT Body Mass Index 44.93 12/14/2020 9:26 AM CDT Plan of Treatment Health Maintenance Due Date Last Done Comments Pre-Diabetes and Diabetes Screening 1982 HEPATITIS B VACCINES (1 of 3 - 19+ 3-dose series) 2001 HPV VACCINES (1 - 3-dose SCD M series) 2009 INFLUENZA VACCINE (#1) 2024 02/24/2015 COVID-19 Vaccine (3 - 2024-2 6 season) 2024 07/23/2020, 06/12/2020 DTAP/TDAP/TD VACCINES (6 - T d or Tdap) 11/13/2026 11/13/2016, 10/17/1983, 1982, Additional history exists Insurance [employer] PPO [id number] Advance Directives For more information, please contact: [phone] * Full Code (Latest Code Status on File) Date Activated Date Inactivated Comments 01/06/2019 12:17 PM 01/06/2019 3:58 PM Care Teams Bellhop Relationship Specialty Start Date End Date Ramiro Muñiz MD [address] [facility] [address] [place] [phone] PCP - General Family Practice 11/20/18
--- OUTSIDE RECORDS SUMMARY | 2025-03-11 16:51 | XMS_ITS | Encounter Summary ---
Author Organization [facility] Care Team Providers Care Senior Chemist Name Role Phone Eugene Alexander MD Primary Care Provider Ramiro Muñiz MD Primary Care Provider Linda Pennington MD Unavailable [phone] Encounter Details Date Type Department Care Team (Latest Contact Info) Description 05/24/2018 Orders Only [facility] CLINCONV ProviderMary MD [address] [place] [address] Social History Tobacco Use Types Packs/Day Years Used Date Smoking Tobacco: Never Assessed Sex and Gender Information Value Date Recorded Sex Assigned at Not on file Legal Sex Male 1:56 AM PRODUCTION LEAD Gender Identity Not on file Sexual Orientation Not on file documented as of this encounter Plan of Treatment Not on file documented as of this encounter Procedures Procedure Name Priority Date/Time Associated Diagnosis Comments SCAN - LABS 06/02/2018 12:00 AM PRODUCTION LEAD documented in this encounter Results * SCAN - LABS (06/02/2018 12:00 AM PRODUCTION LEAD) Narrative 06/02/2018 12:00 AM PRODUCTION LEAD Ordered by an unspecified provider. Historical Provider Final Res ult documented in this encounter Visit Diagnoses Not on filedocumented in this encounter Care Teams Senior Chemist Relationship Specialty Start Date End Date Eugene Alexander MD [address] [facility] [address] [place] [address] PCP - General 07/09/18 09/29/18 Ramiro Muñiz MD [address] [place] [address] PCP - General Family Medicine 09/30/18 Linda Pennington MD [address] [facility] [address] [address] Film Painter Cardiology 04/10/19 documented as of this encounter
--- OUTSIDE RECORDS SUMMARY | 2025-03-11 16:51 | XMS_ITS | Encounter Summary ---
Author Organization [facility] Care Team Providers Care Club Licensee Name Role Phone Eugene Alexander MD Primary Care Provider Ramiro Muñiz MD Primary Care Provider Linda Pennington MD Unavailable [phone] Encounter Details Date Type Department Care Team (Latest Contact Info) Description 05/26/2018 Orders Only [facility] CLINCONV ProviderMary MD [address] [place] [address] Social History Tobacco Use Types Packs/Day Years Used Date Smoking Tobacco: Never Assessed Sex and Gender Information Value Date Recorded Sex Assigned at Not on file Legal Sex Male 1:56 AM FOUNDRY ENGINEER Gender Identity Not on file Sexual Orientation Not on file documented as of this encounter Plan of Treatment Not on file documented as of this encounter Procedures Procedure Name Priority Date/Time Associated Diagnosis Comments CARDIOLOGY REPORT 05/26/2018 12: 00 AM FOUNDRY ENGINEER documented in this encounter Results * CARDIOLOGY REPORT (05/26/2018 12:00 AM FOUNDRY ENGINEER) Anatomical Region Laterality Modality Other Narrative 05/26/2018 12:00 AM FOUNDRY ENGINEER Ordered by an unspecified provider. Historical Provider [facility] ZACHARY COVARRUBIAS Final Result documented in this encounter Visit Diagnoses Not on filedocumented in this encounter Care Teams Club Licensee Relationship Specialty Start Date End Date Eugene Aleaxnder MD [address] [place] [address] PCP - General 07/09/18 09/29/18 Ramiro Muñiz MD [address] [place] [address] PCP - General Family Medicine 09/30/18 Linda Pennington MD [address] [facility] [address] [address] Quality Control Assessor Cardiology 04/10/19 documented as of this encounter
--- OUTSIDE RECORDS SUMMARY | 2025-03-11 16:51 | XMS_ITS | Clinical Summary ---
Author Organization [facility] Address [address] [place] [address] Care Team Providers Care Specialist Physicians Name Role Phone Ramiro Muñiz MD Primary Care Provider Linda Pennington MD Unavailable Allergies Active Allergy Reactions Criticality Noted Date Comments Naltrexone Anxiety Low 12/11/2022 Medications busPIRone (BUSPAR) 10 mg tablet Take 1 tablet (10 mg total) by mouth 2 (two) times a day Take 1 tab po in the morning and 0.5 tab po in the evening Active hydrOXYzine (ATARAX) 25 mg tablet Take 1 tablet (25 mg total) by mouth every 8 (eight) hours as needed 09/19/19 19 Active clonazePAM (KlonoPIN) 0.5 mg tablet 3 (three) times a day 09/30/19 19 Active rivaroxaban (XARELTO) 20 mg tablet Take 10 mg by mouth daily Active acetaminophen (TYLENOL) 325 mg tablet Take 2 tablets (650 mg total) by mouth every 6 (six) hours as needed for pain 30 tablet 10/18/19 21 Active ergocalciferol (DRISDOL) 8,000 unit/mL drops Take by mouth Active fluvoxaMINE (LUVOX) 25 mg tablet Take 1 tablet (25 mg total) by mouth daily Active sildenafiL (VIAGRA) 25 mg tablet Take 0.5 tablets (12.5 mg total) by mouth daily as needed for erectile dysfunction Active eszopiclone (LUNESTA) 1 mg tabletIndicati ons:Insomnia Take 1 tablet (1 mg total) by mouth nightly as needed Take immediately before bedtime Active fluticasone propionate (FLONASE) 50 mcg/actuation nasal spray Administer 2 sprays into each nostril daily 16 g 07/15/19 23 Active vitamin K2 100 mcg capsule Take 100 mcg by mouth daily Active cholecalcifero l (Vitamin D3) 5,000 unit tablet Take 1 tablet (5,000 Units total) by mouth daily Active UNABLE TO FIND Smarty pants mens formula (multivitamin) take 1 gummy po daily Active mometasone (ELOCON) 0.1 % cream Apply 1 Dose topically as needed 11/01/19 23 Active multivitamin tablet Take 1 tablet by mouth daily Active prazosin (MINIPRESS) 1 mg capsule daily 07/30/19 25 Active rosuvastatin (CRESTOR) 10 mg tablet Take 1 tablet (10 mg total) by mouth daily 90 tablet 3 09/30/19 25 Active metoprolol XL (TOPROL-XL) 25 mg extended release tablet TAKE 1 TABLET BY MOUTH EVERY DAY 90 tablet 1 10/17/19 25 Active tirzepatide (MOUNJARO) 7.5 mg/0.5 mL pen injector injection Inject 0.5 mL (7.5 mg total) under the skin every 7 days 2 mL 2 02/24/20 25 Active metFORMIN XR (GLUCOPHAGE XR) 500 mg 24 hr tablet Take 1 tablet (500 mg total) by mouth daily before dinner 30 tablet 2 02/24/20 25 026 Active tirzepatide (Mounjaro) 5 mg/0.5 mL pen injector injection Inject 0.5 mL (5 mg total) under the skin every 7 days Start after taking 2.5 mg weekly for 4 weeks. 2 mL 02/02/20 25 025 Discontinued Active Problems Problem Noted Date Diagnosed Date Encounter for weight loss counseling 01/12/2025 Assessment & Plan (02/23/2025 9:10 AM CDT): Reviewed importance of adequate protein intake. Reviewed recommendation/goal of >/= 150 minutes/week moderate intensity aerobic exercise. Discussed okay to not track food/calories but that if they start to struggle or are not losing weight, this is a useful tool to help refocus. Discussed limiting calorie intake with restaurant options including planning meals prior to ordering, eating only half the meal, and substituting certain items. Assessment & Plan (01/12/2025 8:11 AM CDT): Reviewed importance of adequate protein intake. Reviewed recommendation/goal of >/= 150 minutes/week moderate intensity aerobic exercise. Discussed okay to not track food/calories but that if they start to struggle or are not losing weight, this is a useful tool to help refocus. Discussed limiting calorie intake with restaurant options including planning meals prior to ordering, eating only half the meal, and substituting certain items. Obesity, class 3 01/12/2025 Assessment & Plan (02/23/2025 11:04 AM CDT): Discussed insulin resistance including effect on weight and risk for progression to diabetes. Recommended low-carb, low-glycemic diet; choose whole grains and avoid more highly processed carbohydrates. Discussed potential benefits of this w/r/t gut microbiome. Referred to ADA and [employer] websites for additional information on topics including glycemic index/carbohydrate choices, protein sources. Continue low carb, low glycemic diet. Rony is currently on mounjaro 5mg --> 7.5mg Continue titration of medication as tolerated. Add metformin to current regimen. Start taking Metformin XR 500 mg once daily with a major meal of you day. It is important to take this medication immediately after a meal to lessen side effects. Metformin is a medications which helps to decrease weight, reduce hunger by influencing many different systems in our body. It is used to treat diabetes but we can use it to help with weight loss (Off label use) It does not cause hypoglycemia (low blood sugar) unless used with Insulin or other older diabetes medications. It can be used to conjunction with certain psychiatric medications or HIV medications to reduce weight gain caused by those agents. It may help reduce overall cancer rate for several cancers including colon, lung, prostate, ovary and breast. Usual side effects are diarrhea, nausea and abdominal pain. By taking this medication with food you may lessen these side effects. If you experience any side effects, contact the office. You should avoid using Metformin if you have significant kidney dysfunction (eGFR<30) or liver dysfunction. You should hold metformin for 24-48 hours before and after having an imaging study like CT with iodinated contrast material or any surgery. May consider increasing further in the future if no continued improvement. increase physical activity, water, and protein (eat protein first, veggies, fruits, starchy veggies, legumes, grains) Increase to 60-80+ fl oz daily Increase protein intake to 70-90g daily Try to increase intentional physical activity and add in some strength training (weights, resistance bands, yoga, pilates) Reviewed importance of adequate protein intake. Reviewed recommendation/goal of >/= 150 minutes/week moderate intensity aerobic exercise. Assessment & Plan (01/12/2025 10:48 AM CDT): Discussed insulin resistance including effect on weight and risk for progression to diabetes. Recommended low-carb, low-glycemic diet; choose whole grains and avoid more highly processed carbohydrates. Discussed potential benefits of this w/r/t gut microbiome. Referred to ADA and [place] [employer] websites for additional information on topics including glycemic index/carbohydrate choices, protein sources. Continue low carb, low glycemic diet. Rony is currently on mounjaro 5mg Can stay on 5mg if hunger/cravings controlled and weight decreasing, if things have not improved then we can increase to 7.5mg as tolerated increase physical activity, water, and protein (eat protein first, veggies, fruits, starchy veggies, legumes, grains) Increase to 60-80+ fl oz daily Increase protein intake to 70-90g daily Try to increase intentional physical activity and add in some strength training (weights, resistance bands, yoga, pilates) Reviewed importance of adequate protein intake. Reviewed recommendation/goal of >/= 150 minutes/week moderate intensity aerobic exercise. Erectile dysfunction 12/10/2024 Mild recurrent major depression 12/10/2024 Essential hypertension 12/10/2024 Obstructive sleep apnea syndrome 12/10/2024 Family history of Marfan syndrome 12/10/2024 Coronary artery disease 12/10/2024 Aortic root dilatation 12/10/2024 Encounter for weight management 10/13/2024 Assessment & Plan (10/13/2024 10:09 AM CDT): Reviewed importance of adequate protein intake. Reviewed recommendation/goal of >/= 150 minutes/week moderate intensity aerobic exercise. Discussed okay to not track food/calories but that if they start to struggle or are not losing weight, this is a useful tool to help refocus. Discussed limiting calorie intake with restaurant options including planning meals prior to ordering, eating only half the meal, and substituting certain items. Vitamin D deficiency 08/14/2024 DVT (deep venous thrombosis) 01/22/2024 Bloating 01/22/2024 Chronic GERD 01/22/2024 Palpitations 01/22/2024 Sciatica 01/22/2024 Abdominal pain 01/22/2024 Fatty liver 01/22/2024 Anxiety disorder 01/22/2024 Metabolic disorder 01/22/2024 Assessment & Plan (02/23/2025 9:10 AM CDT): Obesity is one of the leading risk factor for mortality. Metabolically healthy obese individuals had 49% increased risk of coronary artery disease, 7% increased risk of cerebrovascular disease and 96% increased risk of heart failure. In other words, even individuals who are normal weight can have metabolic abnormalities and similar risk for cardiac vascular disease events. Thus, the complications that may result from metabolic syndrome and frequently serious and chronic. They include atherosclerosis, diabetes, myocardial infarction, renal disease, cardiovascular events such as stroke, nonalcoholic fatty liver disease, peripheral artery disease, and cardiovascular diseases. His diabetes develops; there is an increased risk of retinopathy, neuropathy, renal disease and amputation of limbs. Therefore, treating obesity, obesity related diseases is exceedingly crucial. Improving the hypertrophic adipocytes function and decrease insulin resistance is the main goal of the treatment. Furthermore, an emerging concept that the anti-obesity agents must not only reduce the hypertrophic adipocytes but must also correct the fat dysfunction, adiposopathy. Weight loss is associated with increases in mean suppression of glucose production from baseline, is associated with increase insulin stimulated in glucose disposal from fat-free mass and weight loss increased beta cell function. In other words, weight loss change in hepatic insulin sensitivity and muscle insulin sensitivity, beta cell function and a 24-hour plasma glucose and insulin profiles. Our goal is and decreasing the weight between 16 and 20% which will significantly decrease the risk of morbidity and mortality. Assessment & Plan (01/12/2025 8:11 AM CDT): Obesity is one of the leading risk factor for mortality. Metabolically healthy obese individuals had 49% increased risk of coronary artery disease, 7% increased risk of cerebrovascular disease and 96% increased risk of heart failure. In other words, even individuals who are normal weight can have metabolic abnormalities and similar risk for cardiac vascular disease events. Thus, the complications that may result from metabolic syndrome and frequently serious and chronic. They include atherosclerosis, diabetes, myocardial infarction, renal disease, cardiovascular events such as stroke, nonalcoholic fatty liver disease, peripheral artery disease, and cardiovascular diseases. His diabetes develops; there is an increased risk of retinopathy, neuropathy, renal disease and amputation of limbs. Therefore, treating obesity, obesity related diseases is exceedingly crucial. Improving the hypertrophic adipocytes function and decrease insulin resistance is the main goal of the treatment. Furthermore, an emerging concept that the anti-obesity agents must not only reduce the hypertrophic adipocytes but must also correct the fat dysfunction, adiposopathy. Weight loss is associated with increases in mean suppression of glucose production from baseline, is associated with increase insulin stimulated in glucose disposal from fat-free mass and weight loss increased beta cell function. In other words, weight loss change in hepatic insulin sensitivity and muscle insulin sensitivity, beta cell function and a 24-hour plasma glucose and insulin profiles. Our goal is and decreasing the weight between 16 and 20% which will significantly decrease the risk of morbidity and mortality. Assessment & Plan (10/13/2024 7:46 AM CDT): Obesity is one of the leading risk factor for mortality. Metabolically healthy obese individuals had 49% increased risk of coronary artery disease, 7% increased risk of cerebrovascular disease and 96% increased risk of heart failure. In other words, even individuals who are normal weight can have metabolic abnormalities and similar risk for cardiac vascular disease events. Thus, the complications that may result from metabolic syndrome and frequently serious and chronic. They include atherosclerosis, diabetes, myocardial infarction, renal disease, cardiovascular events such as stroke, nonalcoholic fatty liver disease, peripheral artery disease, and cardiovascular diseases. His diabetes develops; there is an increased risk of retinopathy, neuropathy, renal disease and amputation of limbs. Therefore, treating obesity, obesity related diseases is exceedingly crucial. Improving the hypertrophic adipocytes function and decrease insulin resistance is the main goal of the treatment. Furthermore, an emerging concept that the anti-obesity agents must not only reduce the hypertrophic adipocytes but must also correct the fat dysfunction, adiposopathy. Weight loss is associated with increases in mean suppression of glucose production from baseline, is associated with increase insulin stimulated in glucose disposal from fat-free mass and weight loss increased beta cell function. In other words, weight loss change in hepatic insulin sensitivity and muscle insulin sensitivity, beta cell function and a 24-hour plasma glucose and insulin profiles. Our goal is and decreasing the weight between 16 and 20% which will significantly decrease the risk of morbidity and mortality. Assessment & Plan (05/12/2024 7:58 AM [employer]): Obesity is one of the leading risk factor for mortality. Metabolically healthy obese individuals had 49% increased risk of coronary artery disease, 7% increased risk of cerebrovascular disease and 96% increased risk of heart failure. In other words, even individuals who are normal weight can have metabolic abnormalities and similar risk for cardiac vascular disease events. Thus, the complications that may result from metabolic syndrome and frequently serious and chronic. They include atherosclerosis, diabetes, myocardial infarction, renal disease, cardiovascular events such as stroke, nonalcoholic fatty liver disease, peripheral artery disease, and cardiovascular diseases. His diabetes develops; there is an increased risk of retinopathy, neuropathy, renal disease and amputation of limbs. Therefore, treating obesity, obesity related diseases is exceedingly crucial. Improving the hypertrophic adipocytes function and decrease insulin resistance is the main goal of the treatment. Furthermore, an emerging concept that the anti-obesity agents must not only reduce the hypertrophic adipocytes but must also correct the fat dysfunction, adiposopathy. Weight loss is associated with increases in mean suppression of glucose production from baseline, is associated with increase insulin stimulated in glucose disposal from fat-free mass and weight loss increased beta cell function. In other words, weight loss change in hepatic insulin sensitivity and muscle insulin sensitivity, beta cell function and a 24-hour plasma glucose and insulin profiles. Our goal is and decreasing the weight between 16 and 20% which will significantly decrease the risk of morbidity and mortality. Hyperlipidemia 01/22/2024 Assessment & Plan (10/13/2024 7:46 AM CDT): Discussed role of diet, exercise and weight loss in improving lipid profile. Continue statin therapy. Increasing physical activity can increase HDL, often referred as good cholesterol which is protective. losing 5-10% body weight can result in reduction of LDL. Obesity with body mass index 30 or greater 01/21 Adult BMI 45.0-49.9 kg/sq m 01/22/2024 Assessment & Plan (02/23/2025 10:38 AM CDT): Patient's highest BMI was 49.5 ; initial BMI was 47.5; this has improved to 41.45 through medical management Assessment & Plan (01/12/2025 10:12 AM CDT): Patient's highest BMI was 49.5 ; initial BMI was 47.5; this has improved to 41.75 through medical management Assessment & Plan (10/13/2024 9:39 AM CDT): Patient's highest BMI was 49.5 ; initial BMI was 47.5; this has improved to 40.50 through medical management Assessment & Plan (05/12/2024 10:05 AM [employer]): Patient's highest BMI was 49.5 ; initial BMI was 47.5; this has improved to 38.52 through medical management Assessment & Plan (03/10/2024 1:46 PM [employer]): Patient's highest BMI was 49.5; Pt initial BMI was 47.5; this has improved to 37.82 through medical management Obstructive sleep apnea 01/22/2024 History of deep venous throm bosis (DVT) of distal vein of right lower extremity 01/03/2024 Assessment & Plan (01/03/2024 2:39 PM CDT): Impression: Patient has a 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 Patient was placed on Xarelto and has been on and off Xarelto since 2019 as he has had multiple follow up venous duplex scans that continues to show right gastrocnemius DVT. Patient here to discuss anticoagulation therapy versus surgical intervention. Plan: Discussed with the patient no surgical intervention is recommended. Explained to the patient with acute DVT to the calf, medical treatment is the recommended treatment. No surgical intervention is recommended for chronic DVT as it hardens and adheres to the wall of the vein. - Highly suspect what is being seen on venous duplex scans is chronic disease and discussed this with the patient. 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 - Recommend venous duplex of right lower extremity to verify if DVT is acute vs chronic. Will call patient with the results. Hypertension, essential 01/03/2024 Assessment & Plan (01/12/2025 8:10 AM CDT): Blood pressure readings reviewed. Reviewed medications, medication side effects discussed, call with any medical questions, monitor her blood pressure on regular basis, record blood pressure readings and heart rate. Call if systolic blood pressure exceeds 130 mmHg. Weight loss will decrease the blood pressure. By decreasing systolic and diastolic blood pressure, antihypertensive medications can be weaned off. Check BP at least 3x weekly and keep log (first thing in AM, empty bladder, feet flat on floor)- notify PCP if >140/90 consistently Assessment & Plan (10/13/2024 7:46 AM CDT): Blood pressure readings reviewed. Reviewed medications, medication side effects discussed, call with any medical questions, monitor her blood pressure on regular basis, record blood pressure readings and heart rate. Call if systolic blood pressure exceeds 130 mmHg. Weight loss will decrease the blood pressure. By decreasing systolic and diastolic blood pressure, antihypertensive medications can be weaned off. Assessment & Plan (01/03/2024 2:24 PM CDT): Impression: Chronic and stable. Plan: Continue metoprolol Mixed hyperlipidemia 01/03/2024 Assessment & Plan (01/12/2025 8:10 AM CDT): Discussed role of diet, exercise and weight loss in improving lipid profile. Continue statin therapy. Increasing physical activity can increase HDL, often referred as good cholesterol which is protective. losing 5-10% body weight can result in reduction of LDL. Assessment & Plan (05/12/2024 7:58 AM [employer]): Discussed role of diet, exercise and weight loss in improving lipid profile. Continue statin therapy. Assessment & Plan (03/10/2024 1:42 PM [employer]): Discussed role of diet, exercise and weight loss in improving lipid profile. Continue statin therapy. Assessment & Plan (01/03/2024 2:25 PM CDT): Impression: Chronic and stable. Plan: Continue rosuvastatin. Exercise counseling 11/12/2023 Assessment & Plan (02/23/2025 9:10 AM CDT): I counseled the patient on exercise: Recommend 36 min. cardio daily. Based on availiable data on the secondary prevention of coronary heart disease, stroke and prediabetes, physical activity is potentially as active as many drug interventions.Cecelia Madera: TAMI 2012 [id number];01/2013; Diabetes Care, Volume 35, Mar 2012. Reviewed recommendation/goal of >/= 150 minutes/week moderate intensity aerobic exercise. Discussed need for weightbearing exercise in order to promote muscle gain and burning fat. Assessment & Plan (01/12/2025 8:11 AM CDT): I counseled the patient on exercise: Recommend 36 min. cardio daily. Based on availiable data on the secondary prevention of coronary heart disease, stroke and prediabetes, physical activity is potentially as active as many drug interventions.Cecelia Madera: TAMI 2012 [id number];01/2013; Diabetes Care, Volume 35, Mar 2012. Reviewed recommendation/goal of >/= 150 minutes/week moderate intensity aerobic exercise. Discussed need for weightbearing exercise in order to promote muscle gain and burning fat. Assessment & Plan (10/13/2024 7:46 AM CDT): I counseled the patient on exercise: Recommend 36 min. cardio daily. Based on availiable data on the secondary prevention of coronary heart disease, stroke and prediabetes, physical activity is potentially as active as many drug interventions.Cecelia Madera: TAMI 2012 [id number];01/2013; Diabetes Care, Volume 35, Mar 2012. Reviewed recommendation/goal of >/= 150 minutes/week moderate intensity aerobic exercise. Discussed need for weightbearing exercise in order to promote muscle gain and burning fat. Assessment & Plan (05/12/2024 7:58 AM [employer]): Reviewed importance of adequate protein intake. Reviewed recommendation/goal of >/= 150 minutes/week moderate intensity aerobic exercise. Discussed okay to not track food/calories but that if they start to struggle or are not losing weight, this is a useful tool to help refocus. Discussed limiting calorie intake with restaurant options including planning meals prior to ordering, eating only half the meal, and substituting certain items. Assessment & Plan (03/10/2024 1:44 PM [employer]): Reviewed importance of adequate protein intake. Reviewed recommendation/goal of >/= 150 minutes/week moderate intensity aerobic exercise. Discussed okay to not track food/calories but that if they start to struggle or are not losing weight, this is a useful tool to help refocus. Discussed limiting calorie intake with restaurant options including planning meals prior to ordering, eating only half the meal, and substituting certain items. Assessment & Plan (11/12/2023 2:20 PM CDT): Continue low carb, low glycemic diet. Rony is currently on Mounjaro. insurance is requiring a PA and previously he was able to get it covered without DM diagnosis. Struggles with constipation and insomnia on Mounjaro Tolerated Ozempic well in past. Will see if Wegovy is covered and switch to Wegovy 1mg weekly from Mounjaro 5mg Stop mounjaro when you start wegovy If wegovy is not covered, discussed paying OOP and options in [place]. Reviewed importance of adequate protein intake. Reviewed recommendation/goal of >/= 150 minutes/week moderate intensity aerobic exercise. Discussed limiting calorie intake with restaurant options including planning meals prior to ordering, eating only half the meal, and substituting certain items. Fatty liver 11/12/2023 Assessment & Plan (01/12/2025 8:11 AM CDT): Discussed association with insulin resistance. Discussed potential for improvement and/or reduced progression with weight loss. Continue weight management intervention, as above. Assessment & Plan (10/13/2024 10:08 AM CDT): Discussed association with insulin resistance. Discussed potential for improvement and/or reduced progression with weight loss. Continue weight management intervention, as above. Assessment & Plan (11/12/2023 2:21 PM CDT): Continue weight management intervention, as above. 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 Assessment & Plan (06/06/2022 12:08 PM [employer]): Abnormal lipids patient on Crestor which patient is tolerating well no side effects no muscle aches continue Crestor and low-cholesterol diet. History of hypokalemia 04/19/2020 Assessment & Plan (04/19/2020 12:15 PM [employer]): The patient will try to obtain lab work from obesity clinic physician. Fax number provided. The patient will call to have it faxed to me for review. Will review at next interval in 1 to 2 weeks. May have difficulty getting him an appointment in the next week due to Kaylee holiday. Encounter for psychiatric assessment 04/19/2020 Assessment & Plan (04/19/2020 12:17 PM [employer]): Psychiatric assessment completed. Chart reviewed at length. All questions were answered. Treatment plan developed. Anxiety 04/16/2019 Assessment & Plan (04/16/2019 1:37 PM [employer]): Impression: Persistent anxiety that is controlled with daily pharmacotherapy. Plan: Continue pharmacotherapy regimen as directed by PCP. Morbid obesity with body mass index of 40.0-49.9 11/18/2018 Generalized anxiety disorder with panic attacks 09/30/2018 Assessment & Plan (06/06/2022 12:07 PM [employer]): Patient is severe anxiety problem takes medication 3 to 4 times a day and trying to manage it Assessment & Plan (04/19/2020 12:16 PM [employer]): Acute on chronic condition, complicated by nighttime symptoms. Historical information reviewed from the medical chart record which indicates that the patient has been workup from the standpoint of sleep at [facility]. He has recently been started on Viibryd and reports a positive response thus far. Continue Viibryd 20 mg daily. Continue to monitor. Assessment & Plan (09/30/2018 3:47 PM CDT): Patient wants follow the diet. LDL-C is 156 Chest pain 05/19/2018 Assessment & Plan (09/30/2018 3:44 PM CDT): Atypical chest pain Left arm numbness 05/19/2018 Tachycardia 05/19/2018 Assessment & Plan (09/30/2018 3:44 PM CDT): Palpitations are doing well on metoprolol MATTHEW (obstructive sleep apnea) Assessment & Plan (06/06/2022 12:08 PM [employer]): Patient has obesity and sleep apnea is not very puncture with the use of the CPAP advised to be more puncture and compliant Resolved Problems Problem Noted Date Diagnosed Date Resolved Date Class 3 severe obesity with serious comorbidity and body mass index (BMI) of 45.0 to 49.9 in adult 03/10/2024 01/12/2025 Assessment & Plan (12/08/2024 12:19 PM CDT): Discussed insulin resistance including effect on weight and risk for progression to diabetes. Recommended low-carb, low-glycemic diet; choose whole grains and avoid more highly processed carbohydrates. Discussed potential benefits of this w/r/t gut microbiome. Referred to ADA and [employer] websites for additional information on topics including glycemic index/carbohydrate choices, protein sources. Continue low carb, low glycemic diet. Was going to switch to wegovy, however since this visit pt wishes to remain on zepbound due to tolerance better Failed wegovy, OK to sustitute Start Zepbound 2.5mg weekly for 4 weeks then 5mg weekly for 4 weeks This medication is combination of GIP/GLP1 agonist. Common side effcts are nausea, vomiting, indigestion, abdominal pain, diarrhea or constipation and decreased appetite. You should not use this medication if you or your family member has Medullary Thyroid cancer or Multiple Endocrine Neoplasia Syndrome type 2. While you are taking this medication, you may develop pancreatitis, low blood sugar, kidney failure, change in vision, severe stomach problems and galldbladder problems. If you experience any unusual symptoms, contact the office. Please go to the website, [email or web address], for details about the medication, including instructions for proper storage and use of pens and savings information. Take once weekly. increase physical activity, water, and protein (eat protein first, veggies, fruits, starchy veggies, legumes, grains) Increase to 60-80+ fl oz daily Increase protein intake to 70-90g daily Try to increase intentional physical activity and add in some strength training (weights, resistance bands, yoga, pilates) Order of Eating: protein first, then vegetables/fruits, then wait 10 minutes and eat carbohydrates last. Reviewed importance of adequate protein intake. Reviewed recommendation/goal of >/= 150 minutes/week moderate intensity aerobic exercise. Assessment & Plan (05/12/2024 10:17 AM [employer]): Continue low carb, low glycemic diet. Rony is currently on Zepbound 5mg weekly Continue titration of medication as tolerated. Will increase to 7.5mg (using leftover Mounjaro he has at home and then up to 10mg as long as he is tolerating well) If he tolerates the increase well, he will message us to send zepbound 10mg to the pharmacy to stay on until next appointment. increase physical activity, water, and protein (eat protein first, veggies, fruits, starchy veggies, legumes, grains) Increase to 60-80+ fl oz daily Increase protein intake to 70-90g daily Try to increase intentional physical activity and add in some strength training (weights, resistance bands, yoga, pilates) Reviewed importance of adequate protein intake. Reviewed recommendation/goal of >/= 150 minutes/week moderate intensity aerobic exercise. Assessment & Plan (03/10/2024 1:45 PM [employer]): Continue low carb, low glycemic diet. Rony is currently on semaglutide 0.5mg weekly Start wegovy 1mg weekly starting this week and con't weekly Then we will send in a script Zepbound 5mg to see if insurance coverage, if covered then will switch from wegovy to zepbound increase physical activity, water, and protein (eat protein first, veggies, fruits, starchy veggies, legumes, grains) Reviewed importance of adequate protein intake. Reviewed recommendation/goal of >/= 150 minutes/week moderate intensity aerobic exercise. Hypertension 01/22/2024 01/23/2024 Metabolic syndrome 11/12/2023 Assessment & Plan (03/10/2024 1:44 PM [employer]): Obesity is one of the leading risk factor for mortality. Metabolically healthy obese individuals had 49% increased risk of coronary artery disease, 7% increased risk of cerebrovascular disease and 96% increased risk of heart failure. In other words, even individuals who are normal weight can have metabolic abnormalities and similar risk for cardiac vascular disease events. Thus, the complications that may result from metabolic syndrome and frequently serious and chronic. They include atherosclerosis, diabetes, myocardial infarction, renal disease, cardiovascular events such as stroke, nonalcoholic fatty liver disease, peripheral artery disease, and cardiovascular diseases. His diabetes develops; there is an increased risk of retinopathy, neuropathy, renal disease and amputation of labs. Therefore, treating obesity, obesity related diseases is exceedingly crucial. Improving the hypertrophic adipocytes function and decrease insulin resistance is the main goal of the treatment. Furthermore, an emerging concept that the anti-obesity agents must not only reduce the hypertrophic adipocytes but must also correct the fat dysfunction, adiposopathy. Weight loss is associated with increases in mean suppression of glucose production from baseline, is associated with increase insulin stimulated in glucose disposal from fat-free mass and weight loss increased beta cell function. In other words, weight loss change in hepatic insulin sensitivity and muscle insulin sensitivity, beta cell function and a 24-hour plasma glucose and insulin profiles. Our goal is and decreasing the weight between 16 and 20% which will significantly decrease the risk of morbidity and mortality. Assessment & Plan (11/12/2023 2:23 PM CDT): Highest BMI 48.2 Ordered the following labs today: CBC, CMP, Ferritin, Folate, FSH, Hemoglobin A1C, Hepatic Function Panel, Total Insulin, Iron Profile w/ IBC, Lipid Panel, TSH, Free T3, Free T4, Vitamin B12, and Vitamin D Continue low carb, low glycemic diet. Rony is currently on Mounjaro. insurance is requiring a PA and previously he was able to get it covered without DM diagnosis. Struggles with constipation and insomnia on Mounjaro Tolerated Ozempic well in past. Will see if Wegovy is covered and switch to Wegovy 1mg weekly from Mounjaro 5mg Stop mounjaro when you start wegovy If wegovy is not covered, discussed paying OOP and options in [place]. Reviewed importance of adequate protein intake. Reviewed recommendation/goal of >/= 150 minutes/week moderate intensity aerobic exercise. Discussed limiting calorie intake with restaurant options including planning meals prior to ordering, eating only half the meal, and substituting certain items. Obesity, Class II, BMI 35-39.9 11/12/2023 01/12/2025 Assessment & Plan (11/12/2023 2:23 PM CDT): Highest BMI 48.2 Ordered the following labs today: CBC, CMP, Ferritin, Folate, FSH, Hemoglobin A1C, Hepatic Function Panel, Total Insulin, Iron Profile w/ IBC, Lipid Panel, TSH, Free T3, Free T4, Vitamin B12, and Vitamin D Continue low carb, low glycemic diet. Rony is currently on Mounjaro. insurance is requiring a PA and previously he was able to get it covered without DM diagnosis. Struggles with constipation and insomnia on Mounjaro Tolerated Ozempic well in past. Will see if Wegovy is covered and switch to Wegovy 1mg weekly from Mounjaro 5mg Stop mounjaro when you start wegovy If wegovy is not covered, discussed paying OOP and options in [place]. Reviewed importance of adequate protein intake. Reviewed recommendation/goal of >/= 150 minutes/week moderate intensity aerobic exercise. Discussed limiting calorie intake with restaurant options including planning meals prior to ordering, eating only half the meal, and substituting certain items. Deep vein thrombosis (DVT) o f right lower extremity 07/09/2018 01/03/2024 Assessment & Plan (06/06/2022 12:08 PM [employer]): Patient has history of DVT on Xarelto no new symptoms advised to continue same Assessment & Plan (04/16/2019 1:36 PM [employer]): Impression: History of right gastrocs vein DVT which was diagnosed 07/01/2018. No history of PE. Patient has recently finished a 6 month course of oral anticoagulation. He has no acute DVT noted on DVT scan performed today in office. Plan: No need for ongoing oral anticoagulation. He has had a single isolated episode of a right gastrocnemius DVT with no evidence of acute DVT currently. Assessment & Plan (09/30/2018 3:44 PM CDT): On Xarelto doing well Encounters Date Type Department Care Team Description 03/09/2025 Telephone [facility] Cardiology [address] [place] [address] [phone] Jordan Santoyo MD 02/23/2025 10:30 AM CDT Office Visit [facility] Medicine Metabolic Weight Management [address] [place] [address] [place] [phone] Светлана Mooney PA Encounter for weight loss counseling (Primary Dx); Obesity, class 3; Adult BMI 45.0-49.9 kg/sq m (HCC); Metabolic disorder; Exercise counseling 02/08/2025 Telephone [facility] Cardiology [address] [place] [address] [address] Jordan Santoyo MD 01/12/2025 10:30 AM CDT Office Visit [facility] Medicine Metabolic Weight Management [address] [place] [address] [place] [phone] Светлана Mooney PA Encounter for weight loss counseling (Primary Dx); Metabolic disorder; Obesity, class 3; Adult BMI 45.0-49.9 kg/sq m (HCC); Exercise counseling; Hypertension, essential; Mixed hyperlipidemia; Fatty liver 12/30/2024 Telephone [facility] Metabolic Weight Management [facility] [address] [place] [address] Chelsea Panchal 12/10/2024 9:45 AM CDT Office Visit [facility] Cardiology [address] [facility] [address] [place] [address] Jordan Santoyo MD Mixed hyperlipidemia (Primary Dx); History of deep venous thrombosis (DVT) of distal vein of right lower extremity; MATTHEW (obstructive sleep apnea); Family history of Marfan syndrome; Coronary artery disease involving kotlik coronary artery of kotlik heart with other form of angina pectoris; Aortic root dilatation; Precordial pain; Morbid obesity with body mass index of 40.0-49.9 (HCC); Obstructive sleep apnea syndrome 12/10/2024 Orders Only [facility] Metabolic Weight Management [address] [facility] [address] [place] [address] Светлана Mooney PA from Last 3 Months Immunizations Immunization Administration Dates Next Due Influenza, Trivalent, IM (MDV) 02/24/2015 Tdap 11/13/2016 Surgical History Surgery Date Site/Laterality Comments LAPAROSCOPIC CHAVEZ FUNDOPLICATION LAPAROSCOPIC CHOLECYSTECTOMY BOWEL RESECTION LASIK HEMORRHOID SURGERY Ablation Medical History Medical History Date Comments Chest pain Left arm numbness DVT, lower extremity (HCC) right - 3 episodes Anxiety Hyperlipidemia Obesity, Class III, BMI 40-49.9 (morbid obesity) History of gastroesophageal reflux (GERD) MATTHEW (obstructive sleep apnea) Generalized anxiety disorder with panic attacks 09/30/2018 Hypertension Family History Medical History Relation Name Comments Bone cancer Brother 1 Shahab Hyperlipidemia Father Hypertension Father Obesity Father Diabetes type II Maternal Grandfather Narcolepsy Maternal Grandfather OCD Maternal Grandmother Cerebral aneurysm Mother Hypertension Mother Cancer Paternal Grandmother Possibl y breast, possibly ovarian, metastatic for certain Relation Name Status Comments Brother 1 Shahab Alive Brother 2 Ze Alive Father Alive Maternal Grandfather Maternal Grandmother Mother (Age 49) Paternal Grandfather Paternal Grandmother (Age 45) Sister Yomaira Alive Social History Tobacco Use Types Packs/Day Years [...] on file Legal Sex Male 1:56 AM [employer] Gender Identity Not on file Sexual Orientation Not on file Last Filed Vital Signs Vital Sign Reading Time Taken Comments Blood Pressure 108/71 02/23/2025 10:33 AM CDT Pulse 74 02/23/2025 10:33 AM CDT Temperature 36.1 C (97 F) 02/23/2025 10:33 AM CDT Respiratory Rate 15 07/14/2022 4:35 AM CDT Oxygen Saturation 96% 02/23/2025 10: 33 AM CDT Inhaled Oxygen Concentration - - Weight 150.4 kg (331 lb 9.6 oz) 025 10:33 AM CDT Height 190.5 cm (6' 3) 02/23/2025 10:3 3 AM CDT Body Mass Index 41.45 02/23/2025 10:33 AM CDT Plan of Treatment Health Maintenance Due Date Last Done Comments Depression Screening 1982 Hepatitis C Screening 1982 Varicella Vaccines (1 of 2 - 13+ 2-dose series) 1995 Hepatitis B Screening 02/11/2000 Regular Well Visit/Exam 18-64 02/11/2000 Pneumococcal vaccine <65 (1 of 2 - PCV) 2001 HPV Vaccines (1 - 3-dose SCD M series) 2009 Influenza Vaccine (#1) 2024 , 01/24/2022, 02/04/2021, Additional history exists DTaP/Tdap/Td Vaccine (6 - Td or Tdap) 11/13/2026 11/13/2016, 10/17/1983, 1982, Additional history exists Insurance [employer] [facility] CHOICE PLUS [facility] HMO/PPO Address: [address] [address] [place] [address] [facility] CHOICE PLUS [facility] HMO/PPO Address: [facility] [id number] [place] [address] Care Teams Specialist Physicians Relationship Specialty Start Date End Date Ramiro Muñiz MD [address] [facility] [address] [place] [address] PCP - General Family Medicine 09/30/18 Linda Pennington MD [address] [facility] [facility] [place] [address] Certified Nurse Cardiology 04/10/19
[2025-03-11 17:03] LABS: Hematocrit 45.1 % (42.0-52.0); Hemoglobin 14.4 g/dL (14.0-18.0); Immature Granulocyte Percent A 0.6 % (0-0.5); Lymphocytes Absolute Auto 1.98 K/mm3 (0.9-3.2); Mean Corpuscular HGB Conc 31.9 g/dl (32-36); Mean Corpuscular Hemoglobin 26.9 pg (26-34); Mean Corpuscular Volume 84.1 fl (80-100); Nucleated Red Blood Cells Absolute Auto 0.000 K/mm3 (0.0-0.012); Nucleated Red Blood Cells Perc 0.0 % (0.0-0.2); Platelet Count Result 241 k/mm3 (150-375); Red Blood Count 5.36 M/mm3 (4.6-6.20); White Blood Count 5.2 K/mm3 (4.5-10.0)
[2025-03-11 17:15] LABS: Alanine Aminotransferase 27 U/L (6-50); Albumin Level 4.5 g/dL (3.5-5.1); Alkaline Phosphatase 67 U/L (38-126); Amylase 80 U/L (30-110); Anion Gap 6 mmol/L (4-12); Aspartate Amino Transferase 23 U/L (17-59); Bilirubin,Total 0.7 mg/dL (0.2-1.3); Blood Urea Nitrogen 14 mg/dL (9-20); Calcium 9.1 mg/dL (8.4-10.2); Carbon Dioxide 29 mmol/L (22-30); Chloride 102 mmol/L (98-107); Estimated Glomerular Filt Rate > 60; Glucose 85 mg/dL (65-110); Lipase 90 U/L (23-300); Potassium 4.4 mmol/L (3.4-5.0); Sodium 137 mmol/L (137-145); Total Protein 7.5 g/dL (6.3-8.2)
== END 2025-03-11 16:50 | disposition home or self-care (01) ==
LOC: ANHLAB 16:49
PROVIDERS: PCP Family Medicine
DX: R10.9 Unspecified abdominal pain (principal)
CPT/HCPCS: 36415; 80053; 82150; 83690; 85025

== ENCOUNTER 2025-03-18 09:25 | Outpatient (CLI) | payer OTHER, SELFPAY ==
--- NOTE | ~2025-03-18 | US_ITS ---
ULTRASOUND ABDOMEN LIMITED (RIGHT UPPER QUADRANT) Clinical History: R10.11 - Right upper quadrant pain Comparison: CT abdomen and pelvis 07/18/2023 Technique: Right upper quadrant sonography Findings: Liver: Normal size. Echogenic. No intrahepatic biliary ductal dilatation. Normal hepatopedal flow main portal vein. Common Duct: Normal caliber. 4 mm. Gallbladder: Removed. Pancreas: Unremarkable. IMPRESSION: 1. No acute findings. Reviewed, dictated and finalized at location R. STAFF NURSE IMPRESSION: 1. No acute findings.
== END 2025-03-18 09:26 | disposition home or self-care (01) ==
LOC: MICIMG 09:26
PROVIDERS: PCP Family Medicine
DX: R10.11 Right upper quadrant pain (principal)
CPT/HCPCS: 76705